=== PATIENT | male | born 1990 | race Caucasian/White ===

== ENCOUNTER 2021-08-24 12:25 | Emergency (ER) | payer OTHER, SELFPAY ==
[2021-08-24 12:26] VITALS: BP 150/102; PULSE 66; RESP 18; TEMP 36.8; O2SAT 97; BMI 23.6
--- NOTE | 2021-08-24 12:35 | [facility].EDGENADL ---
ED Disposition Clinical Impression: Laceration Disposition: Home, Self-Care Condition on Discharge: Good Instructions: DI for Laceration Repair Additional Instructions: Is follow-up with your primary care physician in 7 to 10 days for wound check and removal of stitches. May also come back here. Please continue to keep an eye on your wound and return if your condition worsens or you experience any of the symptoms we discussed. Keep your wound clean, dry and dress your wound for work. - Critical Care Critical Care Time: No Attestation: On , the high probability of a clinically significant, sudden or life threatening deterioration of the following system(s) required my full and direct attention, intervention and personal management. The time I documented below is in addition to time spent performing reported procedures but includes the following listed in this critical care notation. Medical Decision Making - Medical Records Medical records reviewed: Yes: I reviewed the patient's medical records. - Adeel Inquiry Pt receiving controlled substance: No Vital Signs: 08/24/21 12:26 Temperature 98.3 F Temperature Source Oral Pulse Rate [Left Radial] 66 Respiratory Rate 18 Blood Pressure [Right Arm] 150/102 H Blood Pressure Mean [Right Arm] 118 Blood Pressure Source [Right Arm] Automatic Cuff Blood Pressure Position [Right Arm] Sitting 02 Sat by Pulse Oximetry 97 Oxygen Delivery Method Room Air Orders (Tests/Meds): ED MEDICATIONS Discontinued Medications Generic Name Dose Route Start Last Admin Trade Name Freq PRN Reason Stop Dose Admin Tetanus/Diphtheria Toxoids 0.5 ml 08/24/21 12:45 Tetanus-Diphth Toxoid, Adult 0.5ml Syr IM 08/24/21 12:46 .ONCE ONE Medical Decision Narrative: Patient is a 31-year-old male presenting with a chief complaint of hand laceration. Differential diagnosis includes but is not limited to, complex versus simple laceration, retained foreign body, injury to tendon, vasculature, other. Initial exam, patient is hemodynamically stable nontoxic-appearing. Patient has intact motor or sensory function. Laceration is superficial and spans 6 cm from distal to proximal dorsal aspect of the right hand. Laceration was irrigated for foreign body, repaired. Patient was discharged with wound care instructions and advised to have wound check in 7 to 10 days with stitches out. Tetanus updated. General Adult HPI - General Stated complaint: rt hand lac Time Seen by Provider: 08/24/21 12:35 - History of Present Illness HPI narrative: Rom is a healthy 34-year-old male presenting with a chief complaint of right hand laceration. He was cut at work by a piece of tin metal. Bleeding is controlled. No other injuries or complaints. Patient interviewed with help of telephone repairer. - Related Data Allergies Allergy/AdvReac Type Severity Reaction Status Date / Time No Known Allergies Allergy Verified 08/24/21 13:29 [facility] History - Hepatitis A Screen Attestation statement:: This patient has been screened for Hepatitis A risk factors. ROS Obtained: Yes Systems reviewed as appropriate & no additional complaints - Constitutional Constitutional: Reports other (No LOC, no fall) - ENT Ears, Nose, Mouth, and Throat: Reports other (No injury to head and neck) - Musculoskeletal Musculoskeletal: Reports other (Right hand laceration ) - Integumentary/Breasts Skin/Breast: Reports other (Laceration ) - Neurologic Neurologic: Denies confusion Physical Exam - General General appearance: alert, in no apparent distress - Head Head exam: atraumatic, normocephalic - Chest Chest inspection: Present: normal inspection, symmetric chest wall rise - Respiratory Respiratory exam: Present: other (Normal effort, normal SpO2 on RA) - Cardiovascular Cardiovascular exam: Present: regular rate, tachycardia - Neurological Exam Neurological exam: Present:
--- NOTE | 2021-08-24 12:38 | PC.NURSE ---
pt soaking his hand
[2021-08-24 13:41] VITALS: BP 127/78; PULSE 78; RESP 16; TEMP 36.6; O2SAT 98
== END 2021-08-24 13:44 | disposition home or self-care (01) ==
LOC: ER 13:35
PROVIDERS: Emergency Provider Emergency Medicine
DX: S61.421A Laceration with foreign body of right hand, initial encounter (principal); Z23 Encounter for immunization; W45.8XXA Other foreign body or object entering through skin, initial encounter; Y99.0 Civilian activity done for income or pay
CPT/HCPCS: 12002; 90471; 90714; 99283